=== PATIENT | male | born 1980 | race Caucasian/White ===

== ENCOUNTER 2021-02-18 08:27 | Inpatient (IN) | payer OTHER ==
[~2021-02-18] VITALS: Ht 170.2 cm; Wt 63.5 kg
[2021-02-18 08:37] VITALS: BP 132/94
[2021-02-18 09:36] LABS: ABSOLUTE NEUTROPHILS 5.9 thou/uL (1.4-8.2); BASOPHILS 0.1 % (0.0-2.0); HEMATOCRIT 44.1 % (42.0-52.0); HEMOGLOBIN 15.2 gm/dL (14.0-18.0); LYMPHOCYTES 2.3 % (24.0-44.0); MCHC 34.5 g/dL (28.0-37.0); MCV 90.1 fL (80.0-100.0); MONOCYTES 4.8 % (1.0-8.0); PLATELET COUNT 184 thou/uL (150-400); POLYS 92.8 % (36.0-66.0); RDW 12.9 % (10.5-14.5); WBC 6.4 thou/uL (4.0-11.0)
[2021-02-18 09:45] LABS: CALCIUM 8.9 mg/dL (8.5-10.1); CREATININE 1.2 mg/dL (0.7-1.3); POTASSIUM 4.1 mmol/L (3.5-5.1)
[2021-02-18 09:51] LABS: ALBUMIN 3.7 g/dL (3.4-5.0); TOTAL BILIRUBIN 0.6 mg/dL (0.2-1.0); TOTAL PROTEIN 7.8 g/dL (6.4-8.2)
[2021-02-18 11:52] VITALS: BP 128/85
[2021-02-18 15:57] LABS: BE(vivo) 1.2 mmol/L (-2 to +3); HCO3 25.8 mmol/L (22.0-26.0); PCO2 41.2 mmHg (35.0-45.0); PO2 81.7 mmHg (80.0-100.0); pH 7.415 (7.360-7.450); sO2 96.2 % (92.0-98.0)
--- NOTE | 2021-02-18 17:51 | NUR ---
41 year old male unvaccinated male presents with SOA and diagnosed on 02-11-21 with COVID and ID Now is positive. The patient has been admitted with COVID 19 pneumonia: > 7 days since positivity, fevers/symptoms; worsening exertional hypoxia; and started on aggressive antimicrobial and supportive therapies, consult ID, and reassess frequently. The attending states if improves/doesn't worsen, could consider stopping Remdesiver course early and converting to po corticosteroids but notes that the patient has been taking prednisone in the outpatient setting prior to arrival. The patient has been assessed in the ED as A&O x4 and lists spouse Juani Kaufman at [phone] as next of kin. As plan of care and assessments by MD team are completed CM will follow for all discharge needs.
[2021-02-19 05:31] LABS: ANION GAP 10 mmol/L (7-16); BUN 22 mg/dL (7-18); CALCIUM 9.3 mg/dL (8.5-10.1); CHLORIDE 103 mmol/L (98-107); CO2 31 mmol/L (21-32); GLUCOSE 118 mg/dL (74-106); POTASSIUM 4.3 mmol/L (3.5-5.1); SODIUM 144 mmol/L (136-145)
[2021-02-19 05:37] LABS: ALBUMIN 3.2 g/dL (3.4-5.0); DIRECT BILIRUBIN < 0.1 mg/dL (<0.1-0.2); PHOSPHORUS 3.5 mg/dL (2.6-4.7); SGOT 46 U/L (15-37); SGPT 69 U/L (16-63); TOTAL BILIRUBIN 0.4 mg/dL (0.2-1.0); TOTAL PROTEIN 7.1 g/dL (6.4-8.2)
[2021-02-19 07:00] VITALS: BP 139/82
[2021-02-19 15:23] VITALS: BP 124/77
--- NOTE | 2021-02-20 04:58 | HC ---
[facility] [place] [address] CONSULTATION Name: TAYLOR REDMOND Room #: 170-24 ADM IN M.Mary.#: [id number] Admission: 02/18/21 Attend Phys: Guy Lujan MD Discharge: Date of : 80 Report #: [id number] THIS REPORT FOR: cc: WILLIAM - No family physician/PCP WILLIAM - No family physician/PCP Johnathan Richard MD ~ DATE OF SERVICE: 02/19/2021 ATTENDING PHYSICIAN: Guy Lujan M.D. REASON FOR EVALUATION: COVID-19 infection, complicated by pneumonitis. HISTORY OF PRESENT ILLNESS: Chart reviewed and the patient was examined. This is a 41-year-old gentleman, otherwise unremarkable medical history, who had been ill for a number of days. He noted at least for past 8 days prior to admission, he had consistent fevers, progressive dyspnea, particularly with activity. He was tested positive for the coronavirus 1 week ago; had taken some therapy including a Z-MARCIANO, amoxicillin and Zyrtec; noted he had some chest discomfort that concerned him. Denied significant gastrointestinal-related complaints or diminished appetite. He was evaluated. Chest x-ray did confirm multifocal infiltrates. ABGs; pH 7.415, pCO2 of 41.2, pO2 of 81.7. He was empirically started on combination azithromycin, ceftriaxone empirically for possible secondary bacterial pneumonitis given the timing, as well as remdesivir, vitamins, corticosteroids. ALLERGIES: None. CURRENT MEDICATIONS: Include ceftriaxone, albuterol, ondansetron, ascorbic acid, zinc, dexamethasone, remdesivir, azithromycin, ivermectin. PAST MEDICAL HISTORY: Otherwise, unremarkable. SOCIAL HISTORY: Nonsmoker, no ethanol, no illicit drug use. FAMILY HISTORY: Noncontributory. REVIEW OF SYSTEMS: Otherwise, unremarkable. PHYSICAL EXAMINATION: GENERAL: He is alert, cooperative, appropriate. He is in mild respiratory distress, although he is maintained on room air. He notes he gets dyspneic with minimal activity. VITAL SIGNS: Temperature 98.7, pulse 71, respirations 14, blood pressure 139/82. SKIN: Warm, dry. No rashes. HEENT: Normocephalic. Extraocular muscles intact. [facility] [address] [place] [address] CONSULTATION Name: TAYLOR REDMOND Room #: 170-24 ADM IN Fredis.#: [id number] Admission: 02/18/21 Attend Phys: Guy Lujan MD Discharge: Date of : 80 Report #: [id number] NECK: Supple. LUNGS: Few scattered crackles primarily at the bases. HEART: Regular. I do not appreciate murmur. ABDOMEN: Soft, nontender, nondistended. EXTREMITIES: No cyanosis. GENITOURINARY AND RECTAL: Deferred. LABORATORY DATA: Electrolytes; sodium 144, potassium 4.3, chloride 103, bicarbonate is 31, anion gap of 10, BUN and creatinine 22 and 1.0, glucose of 118. AST of 46, ALT of 69; both slightly elevated. Albumin 3.2. Estimated GFR of 82. ABGs as described above. CBC; white count of 6.4, H and H 15.2 and 44.1, platelets of 184. ASSESSMENT AND PLAN: COVID-19 infection, complicated by pneumonitis. At this point, he is receiving a combination therapy that has been tolerated fairly well. At this point, he is on room air, although he does get dyspneic. Given the timing and history, it may well be a secondary bacterial pneumonitis. He noted he had fevers for 8 persistent days and these have apparently resolved. Continue to monitor expectantly. Support as needed. <ELECTRONICALLY SIGNED> By: Johnathan Richard MD 02/20/21 [id number] Johnathan Richard MD /nt
[2021-02-20 05:11] LABS: CALCIUM 8.9 mg/dL (8.5-10.1); CREATININE 1.1 mg/dL (0.7-1.3); POTASSIUM 4.8 mmol/L (3.5-5.1)
[2021-02-20 05:17] LABS: DIRECT BILIRUBIN 0.1 mg/dL (<0.1-0.2); PHOSPHORUS 3.8 mg/dL (2.6-4.7); TOTAL BILIRUBIN 0.4 mg/dL (0.2-1.0); TOTAL PROTEIN 6.3 g/dL (6.4-8.2)
[2021-02-20 07:07] VITALS: BP 129/85
--- NOTE | 2021-02-20 07:42 | NUR ---
TALKED WITH PHARMACY WHO WILL BE SENDING ALL THE MORNING MEDS.
[2021-02-20 07:54] VITALS: BP 119/77
--- NOTE | 2021-02-20 09:28 | NUR ---
CALLED PHARMACY AGAIN TO CHECK ON MEDS. PHARMACY SAID THEY WOULD BE OVER SOON
[2021-02-20 12:56] VITALS: BP 120/78
[2021-02-20 17:45] VITALS: BP 122/80
[2021-02-20 19:47] VITALS: BP 124/76
[2021-02-21] MEDS ORDERED: CEFUROXIME500 MG PO (13:05)
[2021-02-21] MEDS ORDERED: PREDNISONE 20 M20 M1 PO (13:05)
[2021-02-21] MEDS ORDERED: GUAIFEN-CODEINE10 ML PO (13:05)
[2021-02-21 13:16] VITALS: BP 114/72
[2021-02-21 13:42] VITALS: BP 126/77
== END 2021-02-21 13:30 | disposition home or self-care (01) | DRG 177 ==
LOC: ER 08:27 → EROBS 16:57
PROVIDERS: Emergency Medicine; ADMIT Internal Medicine; ATTEND Internal Medicine
PROC: XW033E5 Introduction of Remdesivir Anti-infective into Peripheral Vein, Percutaneous Approach, New Technology Group 5 (ICD-10-PCS; principal; 2021-02-18)
DX: U07.1 COVID-19 (principal); J12.82 Pneumonia due to coronavirus disease 2019; J15.9 Unspecified bacterial pneumonia; R09.02 Hypoxemia